=== PATIENT | female | born 1995 | race Caucasian/White ===

== ENCOUNTER 2018-09-05 22:55 | Emergency (ER) | payer OTHER ==
[~2018-09-05] VITALS: Ht 160 cm; Wt 73.2 kg
[2018-09-05 23:01] VITALS: Ht 160 cm; Wt 73.2 kg
[2018-09-06 00:33] LABS: APPEARANCE CLEAR (CLEAR); BILIRUBIN NEGATIVE (NEGATIVE); COLOR YELLOW (YELLOW); GLUCOSE NEGATIVE (NEGATIVE); KETONE NEGATIVE (NEGATIVE); NITRITE NEGATIVE (NEGATIVE); PROTEIN NEGATIVE (NEGATIVE); SPECIFIC GRAVITY 1.015 (1.005-1.020); UROBILINOGEN NORMAL (NORMAL)
[2018-09-06 00:35] LABS: BACTERIA FEW /hpf (NONE SEEN); EPITHELIAL CELLS 0-5 /hpf (0-5); RED CELLS - URINE 0-5 /hpf (0-5); WHITE CELLS - URINE 0-5 /hpf (0-5)
[2018-09-06 01:03] VITALS: BP 129/79
== END 2018-09-06 01:03 | disposition home or self-care (01) ==
LOC: D.ER 22:55
PROVIDERS: Family Medicine
DX: L56.8 Other specified acute skin changes due to ultraviolet radiation (principal)

== ENCOUNTER 2018-11-29 22:10 | Emergency (ER) | payer SELFPAY ==
[~2018-11-29] VITALS: Ht 160 cm; Wt 65.9 kg
[2018-11-29] MEDS ORDERED: BUTALB-APAP-CA1 EACH PO (23:03)
[2018-11-29] MEDS ORDERED: ZOFRAN ODT4 MG/UDTAB PO (23:03)
== END 2018-11-29 23:37 | disposition home or self-care (01) ==
LOC: D.ER 22:10
DX: G43.909 Migraine, unspecified, not intractable, without status migrainosus (principal)